=== PATIENT | female | born 1975 | race Caucasian/White ===

== ENCOUNTER 2018-10-19 06:29 | Day surgery (SDC) | payer OTHER, MEDICAID ==
[2018-10-19] MEDS ORDERED: CEFAZOLIN 2 GM/50 ML (PMX) 50 ML IVPB (07:00)
[2018-10-19] MEDS ORDERED: SOD CHLORIDE 0.9% 1,000 ML IV (07:00)
[2018-10-19] MEDS ORDERED: SEVOFLURANE 15 MIN (07:00)
[2018-10-19] MEDS ORDERED: FENTAnyl 50 MCG/ML VIAL ×2 (08:49→09:26)
[2018-10-19] MEDS ORDERED: MIDAZOLAM 1 MG/ML 2 ML INJ (08:49)
[2018-10-19] MEDS: BUPIVACAINE 0.25% (MPF) 30 ML INJ (09:00)
[2018-10-19 09:04] LABS: ADD MAN DIFF? NO
[2018-10-19 09:11] LABS: INR 1.02; PROTIME 13.5 Sec (11.9-14.9); PT RATIO 1.1
[2018-10-19 09:12] LABS: PARTIAL THROMBOPLASTIN TIME 30.6 Sec (23.0-35.0)
[2018-10-19 09:13] LABS: ALANINE AMINOTRANSFERASE 97 IU/L (13-69); ALBUMIN 4.7 g/dl (3.3-4.9); ALBUMIN/GLOBULIN RATIO 1.56; ALKALINE PHOSPHATASE 98 IU/L (42-121); ANION GAP 9 (5-13); ASPARTATE AMINO TRANSFERASE 50 IU/L (15-46); BASOPHILS % 0.7 % (0.0-2.0); BILIRUBIN,INDIRECT 0.3 mg/dl (0-1.1); BILIRUBIN,TOTAL 0.3 mg/dl (0.2-1.3); BLOOD UREA NITROGEN 18 mg/dl (7-20); CALCIUM 9.6 mg/dl (8.4-10.2); CARBON DIOXIDE 28 mmol/L (21-31); CHLORIDE 105 mmol/L (97-110); EOSINOPHILS # 0.1 10^3/ul (0.0-0.5); EOSINOPHILS % 2.3 % (0.0-7.0); Estimated GFR > 60 mL/min (>60); GLUCOSE 112 mg/dl (70-220); HEMATOCRIT 39.5 % (37.0-47.0); LYMPHOCYTES # 2.2 10^3/ul (0.8-2.9); LYMPHOCYTES % 35.8 % (15.0-51.0); MEAN CORPUSCULAR HEMOGLOBIN 29.3 pg (29.0-33.0); MEAN CORPUSCULAR HGB CONC 32.9 g/dl (32.0-37.0); MEAN CORPUSCULAR VOLUME 89.2 fl (82.0-101.0); MEAN PLATELET VOLUME 11.6 fl (7.4-10.4); MONOCYTE # 0.5 10^3/ul (0.3-0.9); NEUTROPHIL # 3.2 10^3/ul (1.6-7.5); PLATELET COUNT 208 10^3/UL (140-415); POTASSIUM 4.2 mmol/L (3.5-5.1); RED BLOOD COUNT 4.43 10^6/ul (4.20-5.40); RED CELL DISTRIBUTION WIDTH 12.2 % (11.5-14.5); SODIUM 142 mmol/L (135-144); TOTAL PROTEIN 7.7 g/dl (6.1-8.1)
[2018-10-19] MEDS: BACITRACIN/POLYMYXIN 28.35 GM OINT TOP (09:17)
[2018-10-19] MEDS ORDERED: ONDANSETRON 4 MG INJ (09:40)
[2018-10-19] MEDS ORDERED: LIDOCAINE 2% (SDV) 5 ML INJ (09:40)
[2018-10-19] MEDS ORDERED: PROPOFOL 20 ML (09:40)
[2018-10-19] MEDS ORDERED: CEFAZOLIN 1 GM INJ (09:40)
[2018-10-19] MEDS ORDERED: DIPHENHYDRAMINE 50 MG INJ IV (10:00)
[2018-10-19] MEDS ORDERED: METOCLOPRAMIDE 10 MG INJ IV (10:00)
[2018-10-19] MEDS: MEPERIDINE 25 MG INJ IV (10:06)
[2018-10-19] MEDS: ONDANSETRON 4 MG INJ IV ×2 (10:06→11:37)
[2018-10-19] MEDS: HYDROmorphONE 1 MG/5 ML IV SYRINGE IV ×3 (10:11→10:26)
[2018-10-19] MEDS: FENTAnyl 50 MCG/ML VIAL IV ×4 (10:39→11:08)
[2018-10-19] MEDS: HYDROCODONE/APAP (5/325) TAB PO (11:48)
== END 2018-10-19 12:30 | disposition home or self-care (01) ==
LOC: SDS 06:29
DX: L72.11 Pilar cyst (principal)
CPT/HCPCS: 14021; 80053; 85025; 85610; 85730; 88307